=== PATIENT | female | born 1980 | race Caucasian/White ===

== ENCOUNTER 2020-09-11 08:04 | Outpatient (CLI) | payer OTHER, SELFPAY ==
--- NOTE | ~2020-09-11 | US_ITS ---
EXAMINATION: US soft tissue LE RT DATE: 09/11/2020 08:55 INDICATION: Right lower limb mass. TECHNIQUE: Multiple grayscale and Doppler ultrasound images of the right lower limb were obtained. COMPARISON: Right ankle radiographs 04/24/2018 FINDINGS: There is a fluid collection lateral to the right ankle with loculations measuring 1.1 x 0.3 x 1.2 cm and 1.7 x 0.4 x 1.3 cm, respectively. IMPRESSION: 1. Multiloculated fluid collection lateral to the right ankle, consistent with a ganglion cyst. Reviewed, dictated and finalized at location A.
== END 2020-09-11 08:05 | disposition home or self-care (01) ==
LOC: ANHIMG 08:09
PROVIDERS: PCP Family Medicine; Visit Provider Family Medicine
DX: R22.40 Localized swelling, mass and lump, unspecified lower limb (principal)
CPT/HCPCS: 76882

== ENCOUNTER 2023-03-10 18:43 | Emergency (ER) | payer OTHER, SELFPAY ==
[2023-03-10] VITALS (23 sets, daily range): BP systolic 112–134; BP diastolic 68–92; PULSE 80–106; RESP 12–18; TEMP 36.4; O2SAT 97–100
[2023-03-10 19:30] LABS: Basophils Absolute Auto 0.1 K/mm3 (0.0-0.1); Basophils Percent Auto 0.3 % (0.2-1.2); Eosinophils Absolute Auto 0.1 K/mm3 (0-0.3); Eosinophils Percent Auto 0.5 % (0-4.4); Hematocrit 50.9 % (37.0-47.0); Hemoglobin 16.7 g/dL (12.0-15.0); Immature Granulocyte Absolute 0.05 K/mm3 (0.00-0.031); Immature Granulocyte Percent A 0.3 % (0-0.5); Immature Platelet Fraction Pct 4.7 % (0.9-11.2); Lymphocytes Absolute Auto 3.06 K/mm3 (0.9-3.2); Lymphocytes Percent Auto 17.8 % (18.3-44.2); Mean Corpuscular HGB Conc 32.8 g/dl (32-36); Mean Corpuscular Hemoglobin 29.1 pg (26-34); Mean Corpuscular Volume 88.8 fl (80-100); Mean Platelet Volume 10.3 fl (7.4-10.4); Monocytes Absolute Auto 0.8 K/mm3 (0.1-0.6); Monocytes Percent Auto 4.9 % (2.6-8.5); Neutrophils Absolute Auto 13.1 K/mm3 (1.3-6.7); Neutrophils Percent Auto 76.2 % (45.5-73.1); Platelet Count Result 377 k/mm3 (150-375); Red Blood Count 5.73 M/mm3 (4.2-5.4); Red Cell Distribution Width 12.1 % (11.5-14.5); White Blood Count 17.2 K/mm3 (4.5-10.0)
[2023-03-10 19:37] LABS: Alanine Aminotransferase 45 U/L (6-35); Albumin Level 4.9 g/dL (3.5-5.1); Alkaline Phosphatase 59 U/L (38-126); Anion Gap 13 mmol/L (8-16); Aspartate Amino Transferase 35 U/L (14-36); Bilirubin,Total 0.6 mg/dL (0.2-1.3); Blood Urea Nitrogen 9 mg/dL (7-17); Calcium 9.7 mg/dL (8.4-10.2); Carbon Dioxide 24 mmol/L (22-30); Chloride 103 mmol/L (98-107); Estimated CRCL calculation 141 ml/min; Estimated Glomerular Filt Rate > 60; Glucose 110 mg/dL (65-110); Lipase 91 U/L (23-300); Potassium 3.4 mmol/L (3.4-5.0); Schistocytes None Seen (NORMAL); Sodium 140 mmol/L (137-145)
--- NOTE | 2023-03-10 22:25 | ED.GENADULT ---
[facility] - General Adult General Chief complaint: Nausea/Vomiting/Diarrhea Stated complaint: N/V/D Time Seen by Provider: 03/10/23 21:38 History of Present Illness HPI narrative: Nausea and vomiting since this morning. She ate fast food last night and is concerned that made her sick. She has also had diarrhea with her vomiting. A few times today she has had syncope after the vomiting or diarrhea episodes. She gets very diaphoretic and feels lightheaded. Patient denies blood in her stool or emesis. Denies fever chills. Denies urinary symptoms. No shortness with chest pain. Her spouse contributes to his tracing that she will pass out at times and she has not eaten anything. Patient has eaten since last night. Also notes decreased urine output Related Data Allergies Allergy/AdvReac Type Severity Reaction Status Date / Time No Known Allergies Allergy Verified 03/10/23 18:47 Review of Systems Review of Systems: Review systems negative except as documented in the [facility] Family History Family History (Updated 12/22/13 @ 07:13 by DOCTOR UNKNOWN) Father Family history of coronary artery disease Mother Family history of coronary artery disease Sibling Family history of coronary artery disease Grandparent Diabetes mellitus Social History Social History Alcohol intake: current Exam Narrative: GENERAL: Well-appearing, well-nourished, and in no acute distress. HEAD: Normocephalic, atraumatic. EYES: PERRLA and EOMI. ENT: Nares clear, no rhinorrhea or epistaxis. Mucous membranes moist. NECK: Supple. CHEST: Clear to auscultation. No respiratory distress. HEART: Regular rate and rhythm. ABDOMEN: Soft, nontender, nondistended. EXTREMITIES: Normal range of motion. No edema. SKIN: Warm, dry, no rash. NEURO: No focal deficits. Alert and oriented x3. PSYCH: Normal mood and affect. Course Course Emergency Course: Labs ordered and grossly unremarkable. Initial heart rate tachycardic. She is dehydrated. Fluids Zofran and Pepcid. Vital Signs Vital signs: Vital Signs Temperature 36.4 C 03/10/23 19:02 Pulse Rate 106 H 03/10/23 19:02 Respiratory Rate 18 03/10/23 19:02 Blood Pressure 118/87 03/10/23 19:02 Pulse Oximetry 97 03/10/23 19:02 Temperature 36.4 C 03/10/23 19:02 Pulse Rate 106 H 03/10/23 19:02 Respiratory Rate 18 03/10/23 19:02 Blood Pressure 118/87 03/10/23 19:02 Pulse Oximetry 97 03/10/23 19:02 Medical Decision Making MDM Narrative Medical decision making narrative: Patient is feeling much better. Able to tolerate water. Will DC to home Vital Signs Vital Signs: Vital Signs Temperature 36.4 C 03/10/23 19:02 Pulse Rate 106 H 03/10/23 19:02 Respiratory Rate 18 03/10/23 19:02 Blood Pressure 118/87 03/10/23 19:02 Pulse Oximetry 97 03/10/23 19:02 Temperature 36.4 C 03/10/23 19:02 Pulse Rate 106 H 03/10/23 19:02 Respiratory Rate 18 03/10/23 19:02 Blood Pressure 118/87 03/10/23 19:02 Pulse Oximetry 97 03/10/23 19:02 Lab Data 03/10/23 19:22 03/10/23 19:22 Labs: Lab Results 03/10/23 Range/Units 19:22 WBC 17.2 H (4.5-10.0) K/mm3 RBC 5.73 H (4.2-5.4) M/mm3 Hgb 16.7 H (12.0-15.0) g/dL Hct 50.9 H (37.0-47.0) % MCV 88.8 (80-100) fl MCH 29.1 (26-34) pg MCHC 32.8 (32-36) g/dl RDW 12.1 (11.5-14.5) % Plt Count 377 H (150-375) k/mm3 MPV 10.3 (7.4-10.4) fl Immature Gran % (Auto) 0.3 (0-0.5) % Neut % (Auto) 76.2 H (45.5-73.1) % Lymph % (Auto) 17.8 L (18.3-44.2) % [place] % (Auto) 4.9 (2.6-8.5) % Eos % (Auto) 0.5 (0-4.4) % Baso % (Auto) 0.3 (0.2-1.2) % Lymph # (Auto) 3.06 (0.9-3.2) K/mm3 [place]house # (Auto) 0.8 H (0.1-0.6) K/mm3 Eos # (Auto) 0.1 (0-0.3) K/mm3 Baso # (Auto) 0.1 (0.0-0.1) K/mm3 Abs Immat Gran (auto) 0.05 H (0.00-0.031) K/mm3 Absolute Neuts (auto) 13.1 H (1.3-6.7) K/mm3 Absolute Nucleated RBC 0.0
[2023-03-10] MEDS: SODIUM CHLORIDE 0.9% IV 1,000 ML 999 ML IV CONT (23:03)
[2023-03-10] MEDS: SODIUM CHLORIDE 0.9% IV 500 ML 999 ML IV CONT (23:03)
[2023-03-10] MEDS: ONDANSETRON INJ 4 MG/2 ML VIAL IV PUSH (23:04)
[2023-03-10] MEDS: FAMOTIDINE 20 MG/2 ML VIAL IV PUSH (23:06)
[2023-03-11] VITALS: O2SAT 100
[2023-03-11 00:01] VITALS: BP 120/82; O2SAT 100
[2023-03-11 00:15] VITALS: O2SAT 100
[2023-03-11 00:16] VITALS: BP 131/85
[2023-03-11] MEDS: diphenhydrAMINE HCl INJ 50 MG/ML VIAL 25 MG IV PUSH (00:26)
[2023-03-11] MEDS: METOCLOPRAMIDE HCL INJ 10 MG/2 ML VIAL IV PUSH (00:28)
== END 2023-03-11 01:05 | disposition home or self-care (01) ==
PROVIDERS: Emergency Medicine; Emergency Provider Emergency Medicine; PCP Family Medicine
DX: K52.9 Noninfective gastroenteritis and colitis, unspecified (principal)
CPT/HCPCS: 36415; 80053; 83690; 85025; 85055; 96361; 96374; 96375; 99284; J1200; J2405; J2765; J7030; J7040

== ENCOUNTER 2023-08-07 21:09 | Emergency (ER) | payer OTHER, SELFPAY ==
[2023-08-07 21:10] VITALS: BP 128/78; PULSE 84; RESP 16; O2SAT 100
[2023-08-07 21:22] LABS: Glucose Point of Care 112 mg/dl (65-105)
[2023-08-07] MEDS: ONDANSETRON INJ 4 MG/2 ML VIAL IV PUSH (21:28)
[2023-08-07] MEDS: SODIUM CHLORIDE 0.9% IV 1,000 ML 999 ML IV CONT ×2 (21:28→22:04)
[2023-08-07 21:34] LABS: Basophils Absolute Auto 0.1 K/mm3 (0.0-0.1); Basophils Percent Auto 0.7 % (0.2-1.2); Eosinophils Absolute Auto 0.1 K/mm3 (0-0.3); Eosinophils Percent Auto 0.7 % (0-4.4); Hematocrit 44.1 % (37.0-47.0); Hemoglobin 14.7 g/dL (12.0-15.0); Immature Granulocyte Absolute 0.03 K/mm3 (0.00-0.031); Immature Granulocyte Percent A 0.2 % (0-0.5); Lymphocytes Absolute Auto 4.55 K/mm3 (0.9-3.2); Lymphocytes Percent Auto 33.8 % (18.3-44.2); Mean Corpuscular HGB Conc 33.3 g/dl (32-36); Mean Corpuscular Hemoglobin 29.5 pg (26-34); Mean Corpuscular Volume 88.6 fl (80-100); Mean Platelet Volume 10.1 fl (7.4-10.4); Monocytes Absolute Auto 0.8 K/mm3 (0.1-0.6); Monocytes Percent Auto 5.9 % (2.6-8.5); Neutrophils Absolute Auto 7.9 K/mm3 (1.3-6.7); Neutrophils Percent Auto 58.7 % (45.5-73.1); Platelet Count Result 369 k/mm3 (150-375); Red Blood Count 4.98 M/mm3 (4.2-5.4); Red Cell Distribution Width 12.2 % (11.5-14.5); White Blood Count 13.5 K/mm3 (4.5-10.0)
[2023-08-07 21:44] LABS: Alanine Aminotransferase 56 U/L (6-35); Albumin Level 4.5 g/dL (3.5-5.1); Alkaline Phosphatase 44 U/L (38-126); Anion Gap 9 mmol/L (4-12); Aspartate Amino Transferase 39 U/L (14-36); Bilirubin,Total 0.8 mg/dL (0.2-1.3); Blood Urea Nitrogen 7 mg/dL (7-17); Calcium 9.8 mg/dL (8.4-10.2); Carbon Dioxide 23 mmol/L (22-30); Chloride 104 mmol/L (98-107); Estimated CRCL calculation 141 ml/min; Estimated Glomerular Filt Rate > 60; Glucose 120 mg/dL (65-110); Lipase 71 U/L (23-300); Potassium 3.5 mmol/L (3.4-5.0); Sodium 136 mmol/L (137-145)
--- NOTE | 2023-08-07 21:48 | ED.GENADULT ---
HPI - General Adult General Chief complaint: Nausea/Vomiting/Diarrhea Stated complaint: nausea/vomiting Time Seen by Provider: 08/07/23 21:20 History of Present Illness HPI narrative: This is a 42-year-old female presenting with nausea vomiting. Patient took will go via at 8:00 a.m. this morning. Since then she has been having multiple episodes of nonbloody nonbilious vomiting. She has been on will go via the past but got a higher dose today. Patient denies fever chills chest pain difficulty breathing or abdominal pain patient does not have diabetes and is taking weghovy for weight loss Related Data Allergies Allergy/AdvReac Type Severity Reaction Status Date / Time semaglutide [From Wegovy] Allergy Nausea and Verified 08/07/23 21:18 Vomiting PMFSH Family History Family History Father Family history of coronary artery disease Mother Family history of coronary artery disease Sibling Family history of coronary artery disease Grandparent Diabetes mellitus Social History Social History Alcohol intake: current Exam Narrative: APPEARANCE: patient appears uncomfortable Head: atraumatic. EYES: EOMI, NOSE: Atraumatic NECK: Trachea midline RESPIRATORY: No increased rate of breathing, CTAB CARDIOVASCULAR: RRR, ABDOMINAL: Non-distended Soft nontender no guarding rebound MUSCULOSKELETAl: No obvious deformities NEURO: Alert. Moving 4/4 extremities SKIN:: Warm, dry. Normal color PSYCHIATRIC: Normal affect Course Vital Signs Vital signs: Vital Signs Pulse Rate 84 08/07/23 21:10 Respiratory Rate 16 08/07/23 21:10 Blood Pressure 128/78 08/07/23 21:10 Pulse Oximetry 100 08/07/23 21:10 Oxygen Delivery Room Air 08/07/23 21:10 Pulse Rate 102 H 08/07/23 23:02 Respiratory Rate 18 08/07/23 23:02 Blood Pressure 143/86 H 08/07/23 23:02 Pulse Oximetry 99 08/07/23 23:02 Oxygen Delivery Room Air 08/07/23 21:10 Medical Decision Making [facility] Narrative Medical decision making narrative: -Course: 42-year-old female presents nausea vomiting after Weghovy administration. Treated with fluids and antiemetics with improvement. Patient was tolerating p.o. at discharge. I discussed admission versus trial of outpatient management and the patient would like to go home and sleep and see how she is feeling the morning. Given return precautions for severe abdominal pain or persistent nausea and vomiting. -DDX includes but is not limited to: Weghovy, gastroenteritis, pancreatitis -Independent interpretation of studies: Labs reviewed within acceptable limits -Dx tests considered but not ordered: CT abd/pelvis -benign abdominal exam -Interventions:1L ns, Zofran, compazine, benadryl -Shared decision making / Disposition: Discharged. -RX: Zofran Vital Signs Vital Signs: Vital Signs Pulse Rate 84 08/07/23 21:10 Respiratory Rate 16 08/07/23 21:10 Blood Pressure 128/78 08/07/23 21:10 Pulse Oximetry 100 08/07/23 21:10 Oxygen Delivery Room Air 08/07/23 21:10 Pulse Rate 102 H 08/07/23 23:02 Respiratory Rate 18 08/07/23 23:02 Blood Pressure 143/86 H 08/07/23 23:02 Pulse Oximetry 99 08/07/23 23:02 Oxygen Delivery Room Air 08/07/23 21:10 Lab Data 08/07/23 21:28 08/07/23 21:28 Labs: Lab Results 08/07/23 08/07/23 Range/Units 21:19 21:28 WBC 13.5 H (4.5-10.0) K/mm3 RBC 4.98 (4.2-5.4) M/mm3 Hgb 14.7 (12.0-15.0) g/dL Hct 44.1 (37.0-47.0) % MCV 88.6 (80-100) fl MCH 29.5 (26-34) pg MCHC 33.3 (32-36) g/dl RDW 12.2 (11.5-14.5) % Plt Count 369 (150-375) k/mm3 MPV 10.1 (7.4-10.4) fl Immature Gran % (Auto) 0.2 (0-0.5) % Neut % (Auto) 58.7 (45.5-73.1) % Lymph % (Auto) 33.8 (18.3-44.2) % [place] % (Auto) 5.9 (2.6-8.5) % Eos % (Auto) 0.7 (0-4.4) % Baso % (Aut
[2023-08-07] MEDS: PROCHLORPERAZINE EDISYLATE 10 MG/2 ML VIAL IV PUSH (22:04)
[2023-08-07] MEDS: diphenhydrAMINE HCl INJ 50 MG/ML VIAL 25 MG IV PUSH (22:04)
--- NOTE | 2023-08-07 23:01 | PC.NURSE ---
Report received from SAEED Hernadez. Assumed care of patient at this time. Patient given water and crackers for PO challenge. Patient has family at bedside.
[2023-08-07 23:02] VITALS: BP 143/86; PULSE 102; RESP 18; O2SAT 99
--- NOTE | 2023-08-07 23:19 | PC.NURSE ---
Patient able to keep sips of water down, no vomiting. Patient states she is nauseous still. ERP notified, speaking with patient at this time.
[2023-08-07 23:44] VITALS: BP 139/87; PULSE 99; RESP 17; O2SAT 99
== END 2023-08-07 23:51 | disposition home or self-care (01) ==
PROVIDERS: Emergency Provider Emergency Medicine; PCP Family Medicine
DX: R11.2 Nausea with vomiting, unspecified (principal); T38.3X5A Adverse effect of insulin and oral hypoglycemic [antidiabetic] drugs, initial encounter
CPT/HCPCS: 36415; 80053; 82948; 83690; 85025; 96361; 96374; 96375; 99284; J0780; J1200; J2405; J7030

== ENCOUNTER 2024-02-15 08:13 | Outpatient (CLI) | payer OTHER, SELFPAY ==
--- NOTE | ~2024-02-15 | XR_ITS ---
XR chest 2V Ordering provider: Jim Velazquez, [employer] History: 43 years Female with . PERSISTENT COUGH,CHRONIC. HX COVID IN OCTOBER. PREV SMOKER . Comparison: May 16, 2015 FINDINGS: MEDIASTINUM: The cardiac silhouette is not enlarged. LUNGS: No infiltrates, effusions or pneumothorax. Slightly prominent bronchovascular markings in the lower lobes. OTHER: No free air under the diaphragm. IMPRESSION: No acute cardiopulmonary pathology. Reviewed, dictated and finalized at location A.
== END 2024-02-15 08:14 | disposition home or self-care (01) ==
PROVIDERS: PCP Nurse Practitioner Family; Visit Provider Nurse Practitioner Family
DX: R05.3 Chronic cough (principal)
CPT/HCPCS: 71046